=== PATIENT | male | born 1945 | race Caucasian/White ===

== ENCOUNTER 2024-03-06 10:29 | Emergency (ER) | payer MEDICARE, OTHER, SELFPAY ==
[2024-03-06 10:50] VITALS: BP 128/86
--- NOTE | 2024-03-06 12:15 | ED.GENMED ---
History of Present Illness
General
Chief Complaint: Back Pain
Source: patient
Exam Limitations: none
Time Seen by Provider: 03/06/24 12:01
History of Present Illness
History of Present Illness:
78-year-old male presents complaining of 3 days worth of worsening lower back pain that radiates down the right leg. The pain is along the posterior lateral right thigh into the anterior right samano to the top of the foot. No associated fever. No
bowel dysfunction. He feels like he is emptying his bladder. No perianal anesthesia. He tried [id number] NSAIDs he had leftover Tylenol 3 and Percocet which helped a little bit. 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
presented here. No injury. No fall. No other complaints
Phy Exam
Physical Exam
Physical Exam:
General: Uncomfortable appearing male no acute respiratory distress HEENT: Normocephalic atraumatic
Musculoskeletal exam: No reproducible tenderness over the lumbar spine. Good range of motion bilateral lower extremities
Neurologic exam: Alert good sensation to lower extremities positive straight leg raise to the right lower extremity. Good strength to the lower extremities. Bilateral patellar's are 2+.
Vascular: 2+ dorsalis pedis pulse bilateral feet
Course
Orders/Labs/Results
Orders:
Orders
03/06/24 12:14
Diazepam [Valium] 5 mg PO NOW STA
Ketorolac [Toradol] 30 mg IM NOW STA
CR Lumbar Spine 2 Or 3 Views Urgent
Comment:
Reason For Exam: low back pain
Vital Signs
Initial and Last Documented VS:
Initial Vital Signs
Pulse Resp BP Pulse Ox
88 18 128/86 96
03/06/24 10:50 03/06/24 10:50 03/06/24 10:50 03/06/24 10:50
Last Documented Vital Signs
Pulse Resp BP Pulse Ox
88 18 128/86 96
03/06/24 10:50 03/06/24 10:50 03/06/24 10:50 03/06/24 10:50
MDM/Problems Addressed
Differential Diagnosis Includes:
Patient with low back pain and right lower extremity discomfort. Consistent with radiculopathy. No red flags of cauda equina. No fever to suggest infectious source. Toradol IM and Valium ordered. X-rays pending.
*Critical Care Note
Total Time (30-74mins, 75-104mins- exclusive of procedures): Not Applicable
Update Note
Update Note:
X-rays lumbar spine show no acute finding. There is degenerative changes throughout otherwise. Patient requesting to leave. I suspect radiculopathy of the right lower extremity. Will prescribe a course of steroid and muscle relaxers. Will
advise follow-up back pain specialist.
ED Attending Note
-
Portions of this chart may have been created with voice recognition software.� Occasional wrong word or��sound alike� substitutions may have occurred due to the inherent limitations of voice recognition software.
Discharge Plan
Departure
Patient Disposition: Home (Routine Discharge)
Date of Disposition: 03/06/24
Time of Disposition: 13:23
Patient with high blood pressure during this ER visit?: No
Discharge Problem:
Lumbar radiculopathy, acute
Instructions: Radiculopathy (DC)
Prescriptions:
New
prednisone 10 mg Tablet
See Rx Instructions .ROUTE .COMPLEX Qty: 30 0RF
Rx Instructions:
Take By Mouth:
40 mg daily x3 days, 30 mg daily x3 days,
20 mg daily x3 days, 10 mg daily x3 days.
diazepam [Valium] 5 mg tablet
5 mg PO BID PRN (Reason: muscle spasm) Qty: 10 0RF
Referrals:
William Mares MD [Family Provider] -
Maikel Quinones MD [Active] -
Activity Restrictions/Additional Instructions:
Rest. Use prednisone and muscle relaxer as directed. Follow-up with back pain specialist.
Interventions
Interventions:
*Risk Screen - Suicide Last Done: 03/06/24 12:00
*General Assessment Last Done: 03/06/24 12:00
*Neglect/Abuse Screening Last Done: 03/06/24 12:00
ED- Cardiac Assessment Last Done: 03/06/24 12:00
ED-Musculoskeletal Assessment Last Done: 03/06/24 12:00
ED- Neurological Assessment Last Done: 03/06/24 12:00
ED- Pulmonary Assessment Last Done: 03/06/24 12:00
Discharge Date and Time
Print Language: GEORGIAN
[2024-03-06] MEDS: VALIUM 5 MG PO (12:19)
[2024-03-06] MEDS: TORADOL 30 MG IM (12:19)
[2024-03-06 13:37] VITALS: BP 146/95
== END 2024-03-06 13:37 | disposition home or self-care (01) ==
LOC: EMR 10:29
PROVIDERS: EMERGENCY PHYSICIAN Emergency Medicine; FAMILY PHYSICIAN Internal Medicine
DX: M54.16 Radiculopathy, lumbar region (principal)
CPT/HCPCS: 99284; 96372; 72100